=== PATIENT | male | born 1980 | race Caucasian/White ===

== ENCOUNTER 2019-04-02 14:22 | Emergency (ER) | payer MEDICAID ==
[~2019-04-02] VITALS: Ht 162.6 cm; Wt 106.2 kg
[~2019-04-02 14:22] MED LIST: ACET500C5 PO; ZOF8 PO
[2019-04-02 14:27] VITALS: Ht 162.6 cm; Wt 106.2 kg
[2019-04-02] MEDS ORDERED: TETRACAINE 0.5% 4 ML OPH LEFT EYE ONE (15:30)
[2019-04-02] MEDS ORDERED: FLUORESCEIN STRIP LEFT EYE ONE (15:30)
[2019-04-02] MEDS ORDERED: OFLO5DRO46 LEFT EYE (15:35)
--- NOTE | 2019-04-02 15:39 | ERD ---
ER Documentation Chief Complaint Chief Complaint left eye pain - foriegn object ( wood particle) HPI 38-year-old male presenting with pain to his left eye. Patient feels that there is a wood particle stuck under his eyelid. He has not use any medications and does not wear glasses or contacts. Patient is attempting to use drops at home with no alleviation. This happened 4 days ago. Denies medical problems. NKDA. Surgical history denies. Social history denies ROS All systems reviewed and are negative except as per history of present illness. Medications Home Meds Active Scripts Ofloxacin* (Ocuflox*) 0.3%-5 Ml Ophth Drops, 1 DROP LEFT EYE QID, #1 BOTTLE Prov:ELIZABETH SPICER PA-C 04/02/19 Acetaminophen* (Tylophen*) 500 Mg Capsule, 1 CAP PO Q6H PRN for PAIN AND OR ELEVATED TEMP, #20 CAP Prov:LORENZO LIVINGSTON NP 12/12/15 Ondansetron Hcl* (Zofran* ODT) 8 mg -ODT Tab.disper, 8 MG PO Q6H PRN for NAUSEA AND OR VOMITING for 5 Days, TAB Prov:LOREZNO LIVINGSTON NP 12/12/15 Allergies Allergies: Coded Allergies: No Known Allergy (Unverified , 02/20/15) PMhx/Soc History of Surgery: No Anesthesia Reaction: No Hx Neurological Disorder: No Hx Respiratory Disorders: No Hx Cardiac Disorders: No Hx Psychiatric Problems: No Hx Miscellaneous Medical Probl: No Hx Alcohol Use: Yes (Social) Hx Substance Use: No Hx Tobacco Use: No FmHx Family History: No diabetes, No coronary disease, No other Physical Exam Vitals Vital Signs Date Temp Pulse Resp B/P (MAP) Pulse Ox O2 O2 Flow FiO2 Time Delivery Rate 04/02/19 97.7 67 18 129/74 99 14:27 (92) Physical Exam GENERAL: The patient is well-appearing, well-nourished, in no acute distress HEENT: Atraumatic. Conjunctivae are pink. Pupils equal, round, and reactive to light. Mild injection noted of the sclera.. Tympanic membranes clear bilaterally. Oropharynx clear. NECK: C-spine is soft and supple. There is no meningismus. There is no cervical lymphadenopathy. CHEST: Clear to auscultation bilaterally. There are no rales, wheezes or rhonchi. HEART: Regular rate and rhythm. No murmurs, clicks, rubs or gallops. Results 24 hrs Current Medications Medications Dose Sig/Yimi Start Time Status Last (Trade) Ordered Route PRN Stop Time Admin Dose Reason Admin Fluorescein 1 strip ONCE ONCE 04/02/19 DC Sodium LEFT EYE 15:30 04/02/19 ([id number]-U-Rqxi 15:31 p) Tetracaine 1 drop ONCE ONCE 04/02/19 DC HCl LEFT EYE 15:30 04/02/19 (Tetracaine 15:31 0.5% Steri-Unit Sammi) Procedures/MDM ER course: Fluorescein and tetracaine drops used in the ED. No uptake noted. No foreign body seen. MDM: 38-year-old male presenting with irritation of the left eye. I have low suspicion for retained foreign body. I have low suspicion for visual deficit. Patient may have small corneal abrasion I will treat with antibiotic drops. Patient is discharged with strict ER precautions. Patient is told if symptoms change or worsen to return immediately to the ER. All questions answered at discharge Departure Diagnosis: Primary Impression: Eye irritation Condition: Stable Patient Instructions: Eye Safety at Work Referrals: COMMUNITY CLINICS YOU HAVE RECEIVED A MEDICAL SCREENING EXAM AND THE RESULTS INDICATE THAT YOU DO NOT HAVE A CONDITION THAT REQUIRES URGENT TREATMENT IN THE EMERGENCY DEPARTMENT. FURTHER EVALUATION AND TREATMENT OF YOUR CONDITION CAN WAIT UNTIL YOU ARE SEEN IN YOUR DOCTORS OFFICE WITHIN THE NEXT 1-2 DAYS. IT IS YOUR RESPONSIBILITY TO MAKE AN APPOINTMENT FOR FOLOW-UP CARE. IF YOU HAVE A PRIMARY DOCTOR --you should call your primary doctor and schedule an appointment IF YOU DO NOT HAVE A PRIMARY DOCTOR YOU CAN CALL OUR PHYSICIAN REFERRAL HOTLINE AT IF YOU CAN NOT AFFORD TO SEE A PHYSICIAN YOU CAN CHOSE FROM THE FOLLOWING [facility] CLINICS [facility] [address] [facility] [address] [facility] [address] [facility] [address] [facility] [address] [facility]. [address] Additional Instructions: FOLLOW UP WITH YOUR PRIMARY CARE PHYSICIAN TOMORROW.Return to this facility if you are not improving as expected. ELIZABETH SPICER PA-C April 02, 2019 15:39
[2019-04-02 15:55] VITALS: BP 122/74; PULSE 72; RESP 18
== END 2019-04-02 15:55 | disposition home or self-care (01) ==
LOC: FTE 14:22
DX: H57.89 Other specified disorders of eye and adnexa (principal)
CPT/HCPCS: Z7502; Z7610; 99283

== ENCOUNTER 2019-05-24 21:15 | Emergency (ER) | payer MEDICAID ==
[~2019-05-24] VITALS: Ht 165.1 cm; Wt 106.0 kg
[~2019-05-24 21:15] MED LIST changes: +OFLO5DRO46 LEFT EYE
[2019-05-24 21:20] VITALS: BP 152/79; PULSE 86; RESP 16; Ht 165.1 cm; Wt 106.0 kg
[2019-05-24] MEDS ORDERED: CEPH-443 PO (22:58)
[2019-05-24] MEDS ORDERED: IBUP-1542 PO (22:58)
[2019-05-24] MEDS ORDERED: IBUPROFEN 600 MG TAB PO ONE (23:00)
--- NOTE | 2019-05-24 23:02 | ERD ---
ER Documentation Chief Complaint Chief Complaint Painful urination x 2 days, with frequent urination HPI Patient is a 38-year-old male, no past medical history, presents the ER for concerns of dysuria x5 days. Patient also reports urinary frequency. Patient denies any fevers, chills, nausea, vomiting, flank pain or hematuria. Patient denies any penile discharge or testicular pain. ROS All systems reviewed and are negative except as per history of present illness. Medications Home Meds Active Scripts Ibuprofen* (Motrin*) 600 Mg Tab, 600 MG PO Q6, #30 TAB Prov:SHAE LAN PA-C 05/24/19 Cephalexin* (Keflex*) 500 Mg Capsule, 500 MG PO TID for 10 Days, CAP Prov:SHAE LAN PA-C 05/24/19 Ofloxacin* (Ocuflox*) 0.3%-5 Ml Ophth Drops, 1 DROP LEFT EYE QID, #1 BOTTLE Prov:ELIZABETH SPICER PA-C 04/02/19 Acetaminophen* (Tylophen*) 500 Mg Capsule, 1 CAP PO Q6H PRN for PAIN AND OR ELEVATED TEMP, #20 CAP Prov:LORENZO LIVINGSTON NP 12/12/15 Ondansetron Hcl* (Zofran* ODT) 8 mg -ODT Tab.disper, 8 MG PO Q6H PRN for NAUSEA AND OR VOMITING for 5 Days, TAB Prov:LORENZO LIVINGSTON NP 12/12/15 Allergies Allergies: Coded Allergies: No Known Allergy (Unverified , 02/20/15) PMhx/Soc Medical and Surgical Hx: pt denies Medical Hx, pt denies Surgical Hx History of Surgery: No Anesthesia Reaction: No Hx Neurological Disorder: No Hx Respiratory Disorders: No Hx Cardiac Disorders: No Hx Psychiatric Problems: No Hx Miscellaneous Medical Probl: No Hx Alcohol Use: Yes (Social) Hx Substance Use: No Hx Tobacco Use: No Smoking Status: Never smoker FmHx Family History: No diabetes Physical Exam Vitals Vital Signs Date Temp Pulse Resp B/P (MAP) Pulse Ox O2 O2 Flow FiO2 Time Delivery Rate 05/24/19 99.9 86 16 152/79 96 21:20 (103) Physical Exam GENERAL: Well-developed, well-nourished male. Appears in no acute distress. HEAD: Normocephalic, atraumatic. EYES: Pupils are equally reactive bilaterally. EOMs grossly intact. No conjunctival erythema. ENT: Moist mucous membranes. No uvula deviation. No kissing tonsils. NECK: Supple. No meningismus. Normal range of motion of the neck. LUNG: Clear to auscultation bilaterally. No rhonchi, wheezing, rales or coarse breath sounds. HEART: Regular rate and rhythm. No murmurs, rubs or gallops. ABDOMEN: Soft, nondistended. Tender to palpation in the suprapubic region. Positive bowel sounds in all four quadrants. No rebound tenderness, no guarding. (-) McBurney's point tenderness. No CVA tenderness. BACK: No midline tenderness. EXTREMITIES: Equal pulses bilaterally. No peripheral clubbing, cyanosis or edema. No unilateral leg swelling. NEUROLOGIC: Alert and oriented. Moving all four extremities without any difficulty. Normal speech. Steady gait. SKIN: Normal color. Warm and dry. No rashes or lesions. Results 24 hrs Laboratory Tests Test 05/24/19 22:36 Bedside Urine pH (LAB) 7.5 Bedside Urine Protein (LAB) 1+ Bedside Urine Glucose (UA) Negative Bedside Urine Ketones (LAB) Negative Bedside Urine Blood 2+ Bedside Urine Nitrite (LAB) Negative Bedside Urine Leukocyte Esterase (L 2+ Current Medications Medications Dose Sig/Yimi Start Time Status Last (Trade) Ordered Route PRN Stop Time Admin Dose Reason Admin Ibuprofen 600 mg ONCE ONCE 05/24/19 (Motrin) PO 23:00 05/24/19 23:01 Procedures/MDM MEDICAL DECISION MAKING: This is a 38-year-old male presents the ER for concerns of dysuria x5 days.. Vital signs were reviewed. Patient was afebrile. Urine dip did show 2+ blood and 2+ leukocyte esterase. Urine will be sent for culture. Urine also sent for gonorrhea and Chlamydia testing. At this time, patient's presentation is most consistent with urinary tract infection. I have a much lower clinical concern for pyelonephritis, nephrolithiasis, appendicitis, diverticulitis, constipation, urethritis, prostatitis, epididymitis, testicular torsion. PRESCRIPTIONS: Keflex DISCHARGE: At this time, patient is stable for discharge and outpatient management. I have instructed the patient to follow-up with his/her primary care physician in 1-2 days. Patient should repeat UA in 2 weeks to check for resolution of urinary tract infection. If symptoms persist, patient may need to see a specialist for further examinations and testing. I have instructed the patient to promptly return to the ER at any time for any new or worsening symptoms including increased pain, fever, nausea, vomiting, urinary changes or weakness. The patient and/or family expressed understanding of and agreement with this plan. All questions were answered. Home care instructions were provided. Disclaimer: Inadvertent spelling and grammatical errors are likely due to EHR/dictation software use and do not reflect on the overall quality of patient care. Also, please note that the electronic time recorded on this note does not necessarily reflect the actual time of the patient encounter. Departure Diagnosis: Primary Impression: UTI (urinary tract infection) Urinary tract infection type: site unspecified Hematuria presence: without hematuria Qualified Codes: N39.0 - Urinary tract infection, site not specified Condition: Fair Patient Instructions: Understanding Urinary Tract Infections (UTIs) Referrals: [facility] CLINICS YOU HAVE RECEIVED A MEDICAL SCREENING EXAM AND THE RESULTS INDICATE THAT YOU DO NOT HAVE A CONDITION THAT REQUIRES URGENT TREATMENT IN THE EMERGENCY DEPARTMENT. FURTHER EVALUATION AND TREATMENT OF YOUR CONDITION CAN WAIT UNTIL YOU ARE SEEN IN YOUR DOCTORS OFFICE WITHIN THE NEXT 1-2 DAYS. IT IS YOUR RESPONSIBILITY TO MAKE AN APPOINTMENT FOR FOLOW-UP CARE. IF YOU HAVE A PRIMARY DOCTOR --you should call your primary doctor and schedule an appointment IF YOU DO NOT HAVE A PRIMARY DOCTOR YOU CAN CALL OUR PHYSICIAN REFERRAL HOTLINE AT IF YOU CAN NOT AFFORD TO SEE A PHYSICIAN YOU CAN CHOSE FROM THE FOLLOWING [facility] CLINICS [facility] [address] [facility] [address] [facility] [facility] [address] [facility] [address] [facility] [address] [facility]. [facility]. [address] [facility]. [facility] YOU HAVE RECEIVED A MEDICAL SCREENING EXAM AND THE RESULTS INDICATE THAT YOU DO NOT HAVE A CONDITION THAT REQUIRES URGENT TREATMENT IN THE EMERGENCY DEPARTMENT. FURTHER EVALUATION AND TREATMENT OF YOUR CONDITION CAN WAIT UNTIL YOU ARE SEEN IN YOUR DOCTORS OFFICE WITHIN THE NEXT 1-2 DAYS. IT IS YOUR RESPONSIBILITY TO MAKE AN APPOINTMENT FOR FOLOW-UP CARE. IF YOU HAVE A PRIMARY DOCTOR --you should call your primary doctor and schedule and appointment IF YOU DO NOT HAVE A PRIMARY DOCTOR YOU CAN CALL OUR PHYSICIAN REFERRAL HOTLINE AT . IF YOU CAN NOT AFFORD TO SEE A PHYSICIAN YOU CAN CHOSE FROM THE FOLLOWING [facility] INSTITUTIONS: [facility] [address] [place] [address] [facility] [address] [place] [address] [facility] [address] [place] [address] Additional Instructions: Llame al doctor MAANA y tiera flako MALINDA PARA DENTRO DE 1-2 ROOT.Dgale a la secretaria que nosotros le instruimos hacer esta malinda.Avise o llame si alfredo con dicin se empeora antes de la malinda. Regresa aqui si peor o no mejor. SHAE LAN PA-C May 24, 2019 23:02
== END 2019-05-24 23:24 | disposition home or self-care (01) ==
LOC: FTE 21:15
DX: N39.0 Urinary tract infection, site not specified (principal)
CPT/HCPCS: 81003; 87086; 87591; Z7502; Z7610; 99283